=== PATIENT | male | born 2000 | race Caucasian/White ===

== ENCOUNTER 2021-07-05 11:58 | Emergency (ER) | payer OTHER | END 2021-07-05 14:14 | disposition home or self-care (01) | LOC: ER1 11:58 | DX: T14.90XA Injury, unspecified, initial encounter (principal); V49.40XA Driver injured in collision with unspecified motor vehicles in traffic accident, initial encounter; W22.11XA Striking against or struck by driver side automobile airbag, initial encounter; Y92.410 Unspecified street and highway as the place of occurrence of the external cause | CPT/HCPCS: 72125; 73130; 73590; 99284 ==

== ENCOUNTER 2021-11-25 22:49 | Emergency (ER) | payer OTHER | END 2021-11-26 00:18 | disposition home or self-care (01) | LOC: ER1 22:49 | DX: R43.9 Unspecified disturbances of smell and taste (principal); F17.290 Nicotine dependence, other tobacco product, uncomplicated; Z86.16 Personal history of COVID-19 | CPT/HCPCS: 99283 ==